=== PATIENT | female | born 1985 ===

== ENCOUNTER 2024-04-22 11:55 | Emergency (ER) | payer MEDICAID, OTHER ==
[~2024-04-22] VITALS: Ht 162.6 cm; Wt 98.0 kg
[2024-04-22 12:54] VITALS: PULSE 71; RESP 18; TEMP 99.1
[2024-04-22] MEDS: SODIUM CHLORIDE 0.9% 1,000 ML IV ONE (12:59)
[2024-04-22] MEDS: METOCLOPRAMIDE HCL 5MG/ml INJ 2ml VIAL IV ONE (13:03)
--- NOTE | 2024-04-22 13:21 | ED.PDOC ---
History of Present Illness HPI Comments 38 y/o F presents with c/o non-radiating, lower abdominal cramping, nausea, and vomiting, with additional inquiry for IV fluids, today. 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 Patient denies having any abnormal vaginal bleeding, urinary symptoms, diarrhea, constipation, hematemesis, or other associated symptoms or modifiers at this time. Chief Complaint: Nausea/Vomiting Time Seen by MD: 12:30 Reviewed Notes: Nurses Notes, Medications, Allergies Allergies: Coded Allergies: NO KNOWN ALLERGIES (Unverified , 04/22/24) Home Meds Active Scripts Famotidine (PEPCID TABLET) 20 Mg Tb, 1 TAB PO BID, #60 TAB 5 Refills Prov:TAMIKO CRUZ MD 04/22/24 Metoclopramide Hcl (Reglan) 10 Mg/10 Ml So, 10 MG PO TIDP PRN for 10 Days, #60 ML Prov:TAMIKO CRUZ MD 04/22/24 Information Source: Patient Mode of Arrival: Ambulatory Severity: Moderate Timing: Hours Duration: Since onset Prehospital treatment: None Past Medical History PAST MEDICAL HISTORY: Denies Surgical History: Denies all surgeries MECHANICAL MANUFACTURING ENGINEER History: No Pertinent MECHANICAL MANUFACTURING ENGINEER History Family History Family History: Unknown Social History Smoker: Non-Smoker Alcohol: Denies ETOH Use Drugs: Denies Drug Use Lives In: Home Gastrointestinal: reports: abdominal pain, nausea, vomiting All Other Systems: Reviewed and Negative (negative unless otherwise stated above or in HPI) Physical Exam General Appearance: No Apparent Distress, Normal HEENT: Normal ENT Inspection, Pharynx Normal, TMs Normal, Other (dry mucus membranes ) Neck: Full Range of Motion, Non-Tender, Normal, Normal Inspection Respiratory: Chest Non-Tender, Lungs Clear, No Accessory Muscle Use, No Respiratory Distress, Normal Breath Sounds Cardiovascular: No Edema, No JVD, No Murmur, No Gallop, Normal Peripheral Pulses, Regular Rate/Rhythm Breast Exam: Deferred Gastrointestinal: No Organomegaly, Non Tender, No Pulsatile Mass, Normal Bowel Sounds, Soft Genitalia: Deferred Pelvic: Deferred Rectal: Deferred Extremities: No calf tenderness, Normal capillary refill, Normal inspection, Normal range of motion, Non-tender, No pedal edema Musculoskeletal : Apperance: Normal Neurologic: Alert, specialty plant supervisor II-XII nml as Tested, No Motor Deficits, Normal Affect, Normal Mood, No Sensory Deficits Cerebellar Function: Normal Reflexes: Normal Skin: Dry, Normal Color, Warm Lymphatic: No Adenopathy Was a procedure done? Was a procedure done?: No Differential Dx Considerations may include: hyperemesis gravidum X-Ray, Labs, Meds, VS Vital Signs Date Time Temp Pulse Resp B/P (MAP) Pulse Ox O2 Delivery O2 Flow Rate FiO2 04/22/24 15:14 134/84 (101) 100 04/22/24 12:54 99.1 71 18 121/71 (88) 96 99.1 04/22/24 12:10 98.1 75 16 122/80 (94) 98 Lab Test 04/22/24 14:48 04/22/24 14:05 Range/Units White Blood Count Pending Red Blood Count Pending Hemoglobin Pending Hematocrit Pending Mean Corpuscular Volume Pending Mean Corpuscular Hemoglobin Pending Mean Corpuscular Hemoglobin Concent Pending Red Cell Distribution Width Pending Platelet Count Pending Mean Platelet Volume Pending Neutrophils (%) (Auto) Pending Lymphocytes (%) (Auto) Pending Monocytes (%) (Auto) Pending Basophils (%) (Auto) Pending Neutrophils # (Auto) Pending Lymphocytes # (Auto) Pending Monocytes # (Auto) Pending Sodium Level 140 136-145 mmol/L Potassium Level 3.7 3.5-5.1 mmol/L Chloride Level 111 H 98-107 mmol/L Carbon Dioxide Level 20 20-31 mmol/L Anion Gap 9 5-15 Blood Urea Nitrogen 7 L 9-23 mg/dL Creatinine 0.65 0.550-1.02 mg/dL Glomerular Filtration Rate Calc 116 >90 mL/min BUN/Creatinine Ratio 10.8 10.0-20.0 Serum Glucose 84 74-106 mg/dL Calcium Level 9.4 8.7-10.4 mg/dL Total Bilirubin 0.9 0.2-1.0 mg/dL Aspartate Amino Transferase (AST) 19 13-40 U/L Alanine Aminotransferase (ALT) 32 7-40 U/L Alkaline Phosphatase 68 46-116 U/L Total Protein 7.0 5.7-8.2 g/dL Albumin 4.2 3.2-4.8 g/dL Current Medications Medications (Trade) Dose Ordered Sig/Jace Route Start Time Stop Time Status Last Admin Metoclopramide HCl (Reglan Injection) 10 mg ONCE ONCE IV 04/22/24 12:45 04/22/24 12:46 DC 04/22/24 13:03 Sodium Chloride 1,000 ml @ 1,000 mls/hr Q1H ONCE IV 04/22/24 12:45 04/22/24 13:44 DC 04/22/24 12:59 Famotidine (Pepcid Injection) 20 mg ONCE ONCE IV 04/22/24 13:30 04/22/24 13:31 DC 04/22/24 13:41 Time of 1ST Reevaluation: 13:00 Reevaluation 1ST: Unchanged Patient Education/Counseling: Diagnosis, Treatment Family Education/Counseling: No Family Present Departure 1 Departure Time of Disposition: 15:19 Impression: Primary Impression: Hyperemesis gravidarum Additional Impression: Dehydration Disposition: 01 HOME / SELF CARE / HOMELESS Condition: Stable Additional Instructions: Thank you for visiting our Emergency Room. I wish you full and complete recovery. Please follow the following instructions: 1. Take your medication bottles with you to EVERY DOCTOR'S VISIT (including y our primary doctor). 2. Please follow up with your primary doctor in 2-3 days or sooner if symptoms do not improve. 3. Please read all the papers given to you at the time of the discharge so that you understand your condition better. 4. Please note that the emergency room visits are focused and not necessarily comprehensive. Therefore, it is possible that some occult medical conditions may go undiagnosed in the ER. 5. The emergency room visits are not and should not be thought of as replace ment for regular visits with your primary doctor. 6. Therefore, it is absolutely critical that you follows up with your primary doctor on regular basis to make sure you receives a complete and comprehensive care. 7. I recommended the you take the hospital discharge papers to your primary care physician and other doctors' offices with you. 8. Go to your nearest emergency room if you think your condition gets worse or you think your condition is an emergency. Drink adequate fluids, avoid acidic drank such as juices and soda. Okay to drink Gatorade Pedialyte etc. e-Prescriptions Famotidine (PEPCID TABLET) 20 Mg Tb 1 TAB PO BID, #60 TAB 5 Refills Prov: WAHIDI,GHALIB M MD 04/22/24 Metoclopramide Hcl (Reglan) 10 Mg/10 Ml So 10 MG PO TIDP PRN for 10 Days, #60 ML Prov: TAMIKO CRUZ MD 04/22/24 Discharged With: Self Critical Care Note Critical Care Time?: No Stability Stability form required: No Heart Score Heart Score: Heart Score Response (Comments) Value History N/A 0 EKG N/A 0 Age N/A 0 Risk Factors N/A 0 Troponin N/A 0 Total 0 I personally scribed for TAMIKO CRUZ MD ([email or web address]) on 04/22/24 at 13:21. Electronically submitted by Garth Dilalrd ([email or web address]). I personally scribed for TAMIKO CRUZ MD ([email or web address]) on 04/22/24 at 15:28. Electronically submitted by Garth Dillard ([email or web address]). TAMIKO CRUZ MD Apr 22, 2024 13:21
[2024-04-22] MEDS: FAMOTIDINE (10MG/ML) 2ML VL IV ONE (13:41)
[2024-04-22 14:56] LABS: Alanine Aminotransferase 32 U/L (7-40); Albumin 4.2 g/dL (3.2-4.8); Alkaline Phosphatase 68 U/L (46-116); Anion Gap 9 (5-15); Aspartate Aminotransferase 19 U/L (13-40); BUN/Creatinine Ratio 10.8 (10.0-20.0); Bilirubin, Total 0.9 mg/dL (0.2-1.0); Calcium 9.4 mg/dL (8.7-10.4); Carbon Dioxide 20 mmol/L (20-31); Glucose 84 mg/dL (74-106); Potassium 3.7 mmol/L (3.5-5.1); Sodium 140 mmol/L (136-145)
[2024-04-22 14:59] LABS: Blood Urea Nitrogen 7 mg/dL (9-23); Chloride 111 mmol/L (98-107)
[2024-04-22 15:14] VITALS: BP 134/84; O2SAT 100
[2024-04-22] MEDS ORDERED: MET10LQ PO (15:21)
[2024-04-22] MEDS ORDERED: FAMO20TA10 PO (15:21)
[2024-04-22 15:55] LABS: Basophils # (auto) 0.1 10 ^3/uL (0-0.2); Basophils % (auto) 0.9 % (0.0-2.0); Eosinophils # (auto) 0.3 10 ^3/uL (0-0.8); Eosinophils % (auto) 2.5 % (0.0-7.0); Hematocrit 36.6 % (36.0-46.0); Hemoglobin 12.3 g/dL (12.2-16.2); Lymphocytes # (auto) 2.5 10 ^3/uL (0.4-5.4); Lymphocytes % (auto) 23.9 % (10.0-50.0); Mean Corpuscular Hemoglobin 29.1 pg (28.0-32.0); Mean Corpuscular Hgb Conc. 33.6 g/dL (32.0-36.0); Mean Corpuscular Volume 86.5 fL (80.0-100.0); Monocytes # (auto) 0.4 10 ^3/uL (0-1.3); Monocytes % (auto) 4.2 % (0.0-12.0); Neutrophils # (auto) 7.1 10 ^3/uL (1.6-8.6); Neutrophils % (auto) 68.5 % (37.0-80.0); Platelet Count (auto) 288 10^3/uL (140-450); Red Blood Cells 4.23 10^6/uL (4.0-5.20); Red Cell Distribution Width 15.3 % (11.8-14.3); White Blood Cell 10.3 10^3/uL (4.4-10.8)
== END 2024-04-22 15:31 | disposition home or self-care (01) ==
LOC: ER 11:55
DX: O21.0 Mild hyperemesis gravidarum (principal); E86.0 Dehydration; Z3A.12 12 weeks gestation of pregnancy
CPT/HCPCS: 36415; 80053; 85025; 96361; 96374; 96375; 99284; J2765; J3490; J7030